=== PATIENT | male | born 1975 | race Caucasian/White ===

== ENCOUNTER 2022-03-12 22:25 | Emergency (ER) | payer SELFPAY ==
[~2022-03-12] VITALS: Ht 175.3 cm; Wt 73.9 kg
[2022-03-12 22:36] VITALS: BP 134/68
--- NOTE | 2022-03-12 22:42 | NUR ---
TO LOBBY FOLLOWING TRIAGE
--- NOTE | 2022-03-13 00:39 | NUR ---
PT TO 12
[2022-03-13] MEDS ORDERED: IBUPROFEN 600 MG TAB PO ONE (00:40)
--- NOTE | 2022-03-13 00:55 | NUR ---
Patient, A/Ox4, resting comfortably in bed, chest rise and fall symmetrical, no s/s of distress.
--- NOTE | 2022-03-13 01:40 | NUR ---
Patient, A/Ox4, resting comfortably in bed, chest rise and fall symmetrical, no s/s of distress.
--- NOTE | 2022-03-13 02:30 | NUR ---
Patient, A/Ox4, resting comfortably in bed, chest rise and fall symmetrical, no s/s of distress.
[2022-03-13 02:47] VITALS: BP 129/71
--- NOTE | 2022-03-13 02:49 | NUR ---
Patient discharged with v/s stable. Written and verbal after care instructions given and explained. Patient verbalized understanding. Ambulatory with steady gait. All questions addressed prior to discharge. Advised to follow up with PMD. Patient stated that he "is going to go stay at a friend's house." Patient given resourses for homeless, clothing appropriate for weather, and patient given food and fluids. Patient used restroom for toileting needs.
== END 2022-03-13 02:45 | disposition home or self-care (01) ==
LOC: MED 22:25
DX: S33.5XXA Sprain of ligaments of lumbar spine, initial encounter (principal); E11.9 Type 2 diabetes mellitus without complications; Z79.4 Long term (current) use of insulin; Z79.899 Other long term (current) drug therapy; X58.XXXA Exposure to other specified factors, initial encounter; Y93.89 Activity, other specified; Y92.89 Other specified places as the place of occurrence of the external cause; Y99.8 Other external cause status
CPT/HCPCS: 99282

== ENCOUNTER 2022-03-13 19:16 | Emergency (ER) | payer SELFPAY ==
[~2022-03-13] VITALS: Ht 175.3 cm; Wt 65.8 kg
[2022-03-13 19:20] VITALS: BP 125/68
--- NOTE | 2022-03-13 19:20 | NUR ---
PT OFFLOADED TO [facility]
--- NOTE | 2022-03-13 20:25 | NUR ---
Patient sitting in chair, A/Ox4, no c/o pain or s/s of distress, chest rise and fall symmetrical.
--- NOTE | 2022-03-13 20:40 | NUR ---
ER physician assessed patient.
--- NOTE | 2022-03-13 21:00 | NUR ---
Patient sitting in chair, A/Ox4, no c/o pain or s/s of distress, chest rise and fall symmetrical.
[2022-03-13 21:11] VITALS: BP 121/67
--- NOTE | 2022-03-13 21:14 | NUR ---
Patient discharged with v/s stable. Written and verbal after care instructions given and explained. Patient verbalized understanding. Ambulatory with steady gait. All questions addressed prior to discharge. Advised to follow up with PMD. Patient stated he is "going to friend's house," all needs met. Patient declined food and toileting needs.
== END 2022-03-13 21:11 | disposition home or self-care (01) ==
LOC: MED 19:16
DX: M79.673 Pain in unspecified foot (principal); E11.9 Type 2 diabetes mellitus without complications; Z79.4 Long term (current) use of insulin; Z79.899 Other long term (current) drug therapy
CPT/HCPCS: 99283